=== PATIENT | male | born 1960 | race Caucasian/White ===

== ENCOUNTER 2018-08-02 19:12 | Emergency (ER) | payer BC, OTHER | END 2018-08-02 23:57 | disposition home or self-care (01) | LOC: FER 19:12 ==

== ENCOUNTER 2018-08-23 19:37 | Emergency (ER) | payer BC, OTHER ==
[2018-08-23 19:45] VITALS: TEMP 98.2; BMI 31.6
[2018-08-23] MEDS ORDERED: SODIUM CHLORIDE 1,000 ML IV ONE (19:57)
[2018-08-23] MEDS ORDERED: morphine CARPU-JECT 4 MG/1 ML DISP.SYRIN IVPUSH ONE (19:57)
--- NOTE | 2018-08-23 19:57 | PDOC ---
History of Present Illness - General Chief Complaint: Pain Stated Complaint: ABD ERIS Time Seen by Provider: 08/23/18 19:48 History Source: Patient Exam Limitations: No Limitations - History of Present Illness Initial Comments: 08/23/18 20:16 This is a 58-year-old male who comes in complaining of left lower quadrant pain times one day. Patient has history of diverticulitis and was diagnosed and treated approximately 5 weeks ago. Patient now returns with similar pain however patient said this time it is not as bad as it was in the past because he had waited 5 days before he came to the ED the last time he had diverticulitis. Patient denies any fevers, chills. Patient said he has had some mild nausea but no vomiting. Patient is otherwise healthy. Patient's last colonoscopy was approximately 6 years and did show diverticulosis. Allergies: as per nursing notes Past Medical History: none Social history: Lives with family. No smoking. No alcohol. No illicit drugs. Surgical history: None General: No fevers or chills, no weakness, no weight loss HEENT: No change in vision. No sore throat,. No ear pain CardioVascular: no chest discomfort. No shortness of breath Respiratory:No cough, or wheezing. Gastrointestinal: no nausea, vomiting, diarrhea or constipation, No rectal bleeding Genitourinary: No dysuria, hematuria, or frequency Musculoskeletal: No joint or muscle pain or swelling Neurologic: No headache, vertigo, dizziness or loss of consciousness Psychiatric: nor depression Skin: No rashes or easy bruising Endocrine: no increased thirst or abnormal weight change Allergic: no skin or latex allergy All other systems reviewed and normal Exam: General: Well-nourished well-developed individual, no acute distress HEENT: Throat: Normal, tonsils normal, no erythema or exudate Neck: Supple, no meningeal signs, no lymphadenopathy Eyes::Pupils equal reactive and round, extraocular motion intact Chest: Nontender to palpation Cardiac: S1-S2 normal, regular rate and rhythm, no murmurs rubs or gallops Respiratory: Lungs clear to auscultation bilateral Abdomen: Soft, nondistended, normal bowel sounds, there is no tenderness on palpation diffusely Extremities: Warm, dry, no cyanosis, clubbing, or edema Skin: No rashes Neuro: Alert and oriented x3, CN II - XII intact, nonfocal exam with normal strength, normal sensation, normal reflexes, normal gait, Psych: Normal mood and affect 08/23/18 22:34 Assessment and plan: This is a 58-year-old male who comes in complaining of left lower quadrant pain similar to what he had in the past with diverticulitis. Workup initiated including CBC, comp, CAT scan abdomen and pelvis EKG was done which showed normal sinus rhythm at a rate of 68, no prolonged QT interval normal intervals no acute ST-T wave changes Ct scan shows acute uncomplicated sigmoid diverticulitis Pt started on Levaquin and Flagyl IV and discharged home. Perscriptions sent to patients pharmacy. Pt will follow up with his PMD 08/23/18 22:52 Past History - Past Medical History Allergies/Adverse Reactions: Allergies Allergy/AdvReac Type Severity Reaction Status Date / Time No Known Allergies Allergy Verified 04/28/12 14:09 Home Medications: Ambulatory Orders Allopurinol [Zyloprim -] 300 mg PO DAILY 04/28/12 Montelukast Na [Singulair -] 10 mg PO DAILY 04/28/12 Omeprazole [Prilosec (RX)] 40 mg PO DAILY 05/07/12 Levofloxacin [Levaquin] 500 mg PO DAILY #10 tablet 08/23/18 metroNIDAZOLE [Flagyl -] 500 mg PO TID #30 tablet 08/23/18 Anemia: Yes ( CHILD) Asthma: Yes Cancer: No Cardiac Disorders: No CVA: No COPD: Yes CHF: No Dementia: No Diabetes: No GI Disorders: Yes (GERD, DIVERTICULITIS,) Disorders: No HTN: No Hypercholesterolemia: No Liver Disease: No Seizures: No Thyroid Disease: No - Surgical History Abdominal Surgery: Yes Appendectomy: Yes Cardiac Surgery: No Cholecystectomy: Yes Lung Surgery: No Neurologic Surgery: No Orthopedic Surgery: No - Suicide/Smoking/Psychosocial Hx Smoking Status: No Smoking History: Unknown if ever smoked Have you smoked in the past 12 months: No Number of Cigarettes Smoked Daily: 0 If you are a former smoker, when did you quit?: 1 YEAR Information on smoking cessation initiated: No Hx Alcohol Use: No Drug/Substance Use Hx: No Substance Use Type: Alcohol Hx Substance Use Treatment: No *Physical Exam - Vital Signs Last Vital Signs Temp Pulse Resp BP Pulse Ox 98.2 F 83 14 127/84 100 08/23/18 19:40 08/23/18 19:40 08/23/18 19:40 08/23/18 19:40 08/23/18 19:40 ED Treatment Course - LABORATORY CBC & Chemistry Diagram: 08/23/18 20:09 08/23/18 20:09 *DC/Admit/Observation/Transfer Diagnosis at time of Disposition: Diverticulitis - Discharge Dispostion Disposition: HOME Condition at time of disposition: Good Decision to Admit order: No - Prescriptions Prescriptions: Levofloxacin [Levaquin] 500 mg PO DAILY #10 tablet metroNIDAZOLE [Flagyl -] 500 mg PO TID #30 tablet - Referrals Referrals: Javad Mari MD [Primary Care Provider] - - Patient Instructions Additional Instructions: Take levaquin once a day for 10 days. Take flagyl 3 times a day for 10 days. For the pain take ibuprofen or Tylenol as needed A diverticulitis diet is recommend as part of a short-term treatment plan for acute diverticulitis. Diverticula are small, bulging pouches that can form in the lining of the digestive system. They're found most often in the lower part of the large intestine (colon). This condition is called diverticulosis. In some cases, one or more of the pouches become inflamed or infected. This is known as diverticulitis. Mild cases of diverticulitis are usually treated with antibiotics and a diverticulitis diet, which includes clear liquids and low-fiber foods. More- severe cases typically require hospitalization. A diverticulitis diet is a temporary measure to give your digestive system a chance to rest. Oral intake is usually reduced until bleeding and diarrhea subside. A diverticulitis diet starts with only clear liquids for a few days. Examples of items allowed on a clear liquid diet include: Broth Fruit juices without pulp, such as apple juice Ice chips Ice pops without bits of fruit or fruit pulp Gelatin Water Tea or coffee without cream As you start feeling better, your doctor will recommend that you slowly add low- fiber foods. Examples of low-fiber foods include: Canned or cooked fruits without skin or seeds Canned or cooked vegetables such as green beans, carrots and potatoes (without the skin) Eggs, fish and poultry Refined white bread Fruit and vegetable juice with no pulp Low-fiber cereals Milk, yogurt and cheese eat yogurt at least once a day as it will help replenish the healthy bacteria in your intestines that the antibiotics kill. White rice, pasta and noodles You should feel better within two or three days of starting the diet and antibiotics. If you haven't started feeling better by then, call your doctor. Also contact your doctor if: You develop a fever Your abdominal pain is worsening You're unable to keep clear liquids down These may indicate a complication that requires hospitalization. The diverticulitis diet has few risks. However, continuing a clear liquid diet for more than a few days can lead to weakness and other complications, since it doesn't provide enough of the nutrients your body needs. For this reason, I recommend you to transition to the low fiberl diet as soon as you can tolerate it and then back to a normal diet once you finish the antibiotics. Return to the emergency department immediately with ANY new, persistent or worsening symptoms. Continue any medications as previously prescribed by your physician. You should follow up with your primary doctor as soon as possible regarding today's emergency department visit. . Please make sure your doctor reviews the results of your emergency evaluation. Thank you for coming to the Emergency Department today for your care. It was a pleasure to see you today. Please note that your evaluation is INCOMPLETE until you follow-up with your doctor. - Post Discharge Activity
[2018-08-23 20:43] LABS: ALBUMIN 4.2 g/dl (3.4-5.0); BILIRUBIN,TOTAL 0.3 mg/dl (0.2-1); CALCIUM 9.1 mg/dl (8.5-10)
[2018-08-23 21:12] LABS: BASO % 0.6 % (0-2.0); EOS % 3.8 % (0-4.5); HEMATOCRIT 41.5 % (35.4-49); HEMOGLOBIN 14.1 GM/dl (11.7-16.9); MCH 31.5 pg (25.7-33.7); MCHC 33.9 g/dl (32.0-35.9); MEAN CELL VOLUME 92.8 fl (80-96); MEAN PLT VOLUME 8.1 fl (7.5-11.1); MONO % 6.6 % (3.8-10.2); PLATELET COUNT 244 K/MM3 (134-434); RBC 4.47 M/mm3 (4.00-5.60); RDW 13.3 % (11.9-15.9); WHITE BLOOD COUNT 8.9 K/mm3 (4.0-10.8)
[2018-08-24 00:47] VITALS: BP 114/69; PULSE 66
--- NOTE | 2018-08-25 13:27 | EKG ---
Test Reason : Blood Pressure : / mmHG Vent. Rate : 068 BPM Atrial Rate : 068 BPM P-R Int : 200 ms QRS Dur : 090 ms QT Int : 400 ms P-R-T Axes : 055 014 047 degrees QTc Int : 425 ms NORMAL SINUS RHYTHM NORMAL ECG NO PREVIOUS ECGS AVAILABLE Confirmed by VISH LEONARD MD ([id number]) on 08/25/2018 1:27:27 PM Referred By: MD CHRISTIANSON Confirmed By:VISH LEONARD MD
== END 2018-08-24 00:51 | disposition home or self-care (01) ==
LOC: FER 19:37
PROC: 3E03329 Introduction of Other Anti-infective into Peripheral Vein, Percutaneous Approach (ICD-10-PCS; principal; 2018-08-23)
PROC: 3E0337Z Introduction of Electrolytic and Water Balance Substance into Peripheral Vein, Percutaneous Approach (ICD-10-PCS; 2018-08-23)
DX: K57.92 Diverticulitis of intestine, part unspecified, without perforation or abscess without bleeding (principal); J45.909 Unspecified asthma, uncomplicated; K44.9 Diaphragmatic hernia without obstruction or gangrene; K21.9 Gastro-esophageal reflux disease without esophagitis; Z87.891 Personal history of nicotine dependence
CPT/HCPCS: 36415; 74177-TC; 80053; 81003; 85025; 93005; 99283-25; J7030